=== PATIENT | male | born 1990 | race Two or more races ===

== ENCOUNTER 2020-03-09 15:54 | Emergency (ER) | payer SELFPAY ==
[~2020-03-09] VITALS: Ht 175.3 cm; Wt 168.0 kg
[2020-03-09 16:16] VITALS: BP 149/93
--- NOTE | 2020-03-09 16:21 | NUR ---
PA-C EVALUATED IN TRIAGE
--- NOTE | 2020-03-09 17:52 | NUR ---
pt signed request for dc from triage.
--- NOTE | 2020-03-09 17:53 | NUR ---
No show to [email or web address] at [id number].
== END 2020-03-09 17:54 | disposition left against medical advice (07) ==
LOC: ED 16:10
DX: R07.9 Chest pain, unspecified (principal); E66.01 Morbid (severe) obesity due to excess calories; Z68.43 Body mass index [BMI] 50.0-59.9, adult
CPT/HCPCS: 93005; 99283